=== PATIENT | female | born 1995 | race Caucasian/White ===

== ENCOUNTER 2021-12-20 13:46 | Emergency (ER) | payer OTHER, SELFPAY ==
--- NOTE | ~2021-12-20 | CT_ITS ---
EXAMINATION: CT ABDOMEN AND PELVIS WITH CONTRAST CLINICAL INFORMATION: Left lower quadrant abdominal pain COMPARISON: None TECHNIQUE: Multidetector volumetric images were obtained from the superior aspect of the liver through the pubic symphysis following administration 85 mL of Omnipaque 350 intravenous contrast. Sagittal and coronal reformatted images were obtained on the technologist's workstation. Oral contrast: No This CT examination was performed using dose optimization techniques as appropriate, variously including the following: *Automated exposure control *Adjustment of mA and/or kV according to patient size (this includes techniques or standardized protocols for targeted exams where dose is matched to indication/reason for exam; i.e. extremities or head) *Use of iterative reconstruction technique DLP: 799 mGy-cm FINDINGS: LUNG BASES: The visualized lung bases are unremarkable. LIVER, GALLBLADDER, AND BILIARY TREE: The liver is normal in size, shape, and attenuation. No focal hepatic lesion or biliary ductal dilatation is present. The gallbladder is unremarkable with no evidence of radiopaque gallstones, gallbladder wall thickening, or obvious pericholecystic inflammatory changes. PANCREAS: Unremarkable. SPLEEN: Unremarkable. ADRENAL GLANDS: Unremarkable. KIDNEYS AND URETERS: The kidneys are normal in size, shape, and attenuation. No hydronephrosis, hydroureter, or calculi seen. No perinephric stranding. BLADDER: Unremarkable. GASTROINTESTINAL TRACT: There is no bowel obstruction. Normal appendix. There are scattered colonic diverticuli without diverticulosis. ABDOMINAL WALL: No significant hernia is appreciated. LYMPH NODES: Normal. VASCULAR: Unremarkable. PELVIC VISCERA: The uterus and adnexa are unremarkable. 2.2 cm left ovarian cyst that is likely physiologic OSSEOUS STRUCTURES: Unremarkable. CT/CT abdomen pelvis w IV con IMPRESSION: No acute abnormality or pelvis. Scattered colonic diverticulosis, no diverticulitis. Fleischner guidelines were followed.
--- NOTE | ~2021-12-20 | XR_ITS ---
EXAMINATION: XR CHEST CLINICAL INFORMATION: Cough COMPARISON: None TECHNIQUE: Frontal view of the chest was obtained. FINDINGS: The lungs are clear. There is no airspace consolidation or groundglass opacity or effusion. The costophrenic sulci are clear. The heart is normal in size. The vascularity is normal. The hilar and mediastinal contours and visualized bony structures are unremarkable. XR/XR chest 1V IMPRESSION: Unremarkable examination.
[2021-12-20 14:02] VITALS: BP 136/71; PULSE 78; RESP 18; TEMP 36.2; O2SAT 99; BMI 36.0
[2021-12-20 15:30] LABS: COVID-19 Test Negative (Negative); IDNOW Serial# 9DB6401D; Influenza A Negative (Negative); Influenza B2 Negative (Negative)
[2021-12-20 16:26] VITALS: PULSE 92; RESP 18; O2SAT 95
[2021-12-20] MEDS: 0.9 % Sodium Chloride 1,000 ML 999 ML IV (16:38)
[2021-12-20] MEDS: ondansetron HCL 4 MG/2 ML VIAL IVPUSH ×2 (16:38→18:58)
[2021-12-20] MEDS: Ketorolac Tromethamine 15 MG/ML VIAL IVPUSH (16:40)
--- NOTE | 2021-12-20 16:47 | ECG_ITS ---
Test Reason : lightheadedness Blood Pressure : / mmHG Vent. Rate : 071 BPM Atrial Rate : 071 BPM P-R Int : 156 ms QRS Dur : 078 ms QT Int : 402 ms P-R-T Axes : 041 032 021 degrees QTc Int : 436 ms Normal sinus rhythm Normal ECG No previous ECGs available Referred By: Katie Motley Electronically Signed By:ERIC ROWAN MD
--- NOTE | 2021-12-20 16:51 | ED.URI ---
HPI - URI/Sore Throat General Chief Complaint: Upper Respiratory Symptoms Stated Complaint: possible ear infection, vomiting Time Seen by Provider: 12/20/21 15:46 Source: patient Mode of arrival: ambulatory History of Present Illness HPI Narrative: 26-year-old female with no significant past medical history presenting to the ED complaining of sore throat, left-sided ear pain, rhinorrhea, cough, upper back soreness, lightheadedness, abdominal discomfort, nausea, vomiting and decreased p.o. intake x a couple days. Admits kids are at home with similar symptoms. Denies suspicious food intake or recent travel. Reports symptoms mildly improved today from yesterday. Denies fever, chest pain, shortness breath, diarrhea, dysuria/hematuria, headache, inability to swallow. MD elicited complaint: cough, sore throat, rhinorrhea and nasal congestion Related Data Previous Rx's Medication Instructions Recorded acetaminophen 500 mg tablet 500 mg PO Q6H PRN fever or pain 12/20/21 (Tylenol Extra Strength) #14 tabs amoxicillin 875 mg-potassium 1 tab PO BID 7 days #14 tabs 12/20/21 clavulanate 125 mg tablet cyclobenzaprine 5 mg tablet 5 mg PO Q8H PRN pain (scale score 12/20/21 7-10) 5 days #14 tabs fluticasone propionate 50 2 spray intranasal DAILY #16 grams 12/20/21 mcg/actuation nasal spray,suspension (Flonase Allergy Relief) lidocaine 5 % topical patch 1 patch topical DAILY PRN pain #30 12/20/21 (Lidoderm) ea naproxen 500 mg tablet 500 mg PO BID PRN pain 10 days #20 12/20/21 tabs Allergies Allergy/AdvReac Type Severity Reaction Status Date / Time No Known Allergies Allergy Verified 12/20/21 14:01 Review of Systems Review of Systems: Constitutional: No Fever, No Chills, No Night Sweats, No Fatigue, + Malaise ENT/Mouth: No Hearing loss, + Ear Pain, + Nasal Congestion, No Sinus Pain, No Hoarseness, + sore throat, + Rhinorrhea, No Swallowing Difficulty Eyes: No Eye Pain, No Swelling, No Redness, No Vision Changes Cardiovascular: No Chest Pain, No SOB, No Dyspnea on Exertion, No Orthopnea, No Edema, No Palpitations Respiratory: + Cough, No Sputum, No Wheezing, No Dyspnea Gastrointestinal: + Nausea, + Vomiting, No Diarrhea, No Constipation, + Abdominal pain Genitourinary: No Dysuria, No Urinary Frequency, No Hematuria, No Urinary Incontinence/retention, No Urgency, No Flank Pain, No Urinary Flow Changes Musculoskeletal: No joint pain, No Myalgias, No Joint Swelling Skin: No Skin Lesions, No rash Neuro: No Weakness, No Loss of Consciousness, + lightheadedness, No Headache Yes all other systems are reviewed and are negative Constitutional: Constitutional: Reports as per HPI Neurologic: Denies Abnormal speech present [facility] Past Medical History Attestation statement: The following information was validated with the patient. Social History Social History Advance Directives: No Advance Directives Information Provided: No Advance Directives on File: No Physical Exam Vital Signs: Vital Signs: Last Vital Signs Temp 97.1 F 12/20/21 14:02 Pulse 85 12/20/21 18:44 Resp 18 12/20/21 16:26 BP 115/69 12/20/21 18:44 Pulse Ox 99 12/20/21 14:02 O2 Del Method 12/20/21 14:02 BMI result Body Mass Index 36.0 Const: General: cooperative, healthy appearing, no acute distress, alert, awake and Physically active Orientation/consciousness: patient oriented x3 Limitations: no limitations HEENT: Other: + bilateral tonsillar swelling. No erythema or exudates. Right tonsil stone noted Head: Yes normal to inspection and Yes atraumatic Ears: hearing grossly normal bilaterally, external ears normal, TM normal on the right, mastoids normal and TM abnormal dull on the left General nose exam: Normal external nose present Face and sinus: Yes normal facial exam Throat: Yes uvula midline, Yes abnormal tonsil, No peritonsillar mass, No uvula laterally displaced and No uvular edema Eyes: General: appearance normal, both eyes and all related structures Pupils: Equal, round and reactive pupils present EOM: EOMs intact bilaterally Neck: Other: No midline cervical spinous tenderness. Bilateral trapezius muscle tenderness to palpation reproducing subjective complaint Neck: Yes normal visual inspection, Yes full ROM, Yes no lymphadenopathy and Yes no meningeal signs Resp: Effort & Inspection: normal respiratory effort, no respiratory distress, no stridor and not tachypneic Auscultation: clear to auscultation bilaterally, no crackles, no rales, no rhonchi and no wheezes Cardio: Rate: regular rate Heart sounds: S1 normal heart sound present and S2 normal heart sound present GI: Inspection: Yes normal to inspection Palpation (GI): Soft to palpation, Tenderness to palpation present (GI) in the LLQ; with no rebound tenderness, no guarding and not rigid : General: Yes no CVA tenderness Back/Spine/Pelvis: Other: No midline thoracic/lumbar spinous tenderness/step-off or deformity Back: no CVA tenderness Skin: Rashes: no rashes Wounds: no wounds Neuro: General: patient oriented x3, gait normal, tone normal, moves all extremities, no meningeal signs, no focal motor deficits and CN's II-XI intact bilaterally Cranial nerves: Yes CN's II-XII intact bilaterally, Yes Equal, round and reactive pupils present and Yes Bilaterally intact EOM present Cognition (Neuro): normal cognition Speech: No Abnormal speech present Gait exam (Neuro): Normal gait present Motor exam (neuro): 5/5 motor strength present throughout, Pronator motor function not present and no tremor noted Extrem: General: Yes normal to inspection and Yes no pedal edema Course Course Course Narrative: -COVID-19 and influenza negative -1738--no leukocytosis. Labs otherwise reassuring. UA negative, trace ketones. negative XR chest 1V IMPRESSION: Unremarkable examination. -1815--CT abdomen pelvis w IV con IMPRESSION: No acute abnormality or pelvis. Scattered colonic diverticulosis, no diverticulitis.? ? Fleischner guidelines were followed. -orthostatic vital signs negative Results discussed with patient including worrisome signs and symptoms and strict return precautions, and when to return to the emergency department. They verbalized understanding and feel safe for discharge at this time. MDM - URI/Sore Throat MDM Narrative Medical decision making narrative: 26-year-old female with no significant past medical history presenting to the ED complaining of sore throat, left-sided ear pain, rhinorrhea, cough, upper back soreness, lightheadedness, abdominal discomfort, nausea, vomiting and decreased p.o. intake x a couple days. On exam vital signs stable, NAD, nontoxic appearing, no focal neuro deficits, lungs CTA, abdomen soft with left lower quadrant tenderness, no rebound or guarding. Concern for viral illness vs pharyngitis vs otitis. Concern for colitis vs gastroenteritis vs diverticulitis vs dehydration/metabolic abnormalities vs orthostasis. Low suspicion for appendicitis, UTI, cholecystitis/cholelithiasis, pancreatitis or ACS/PE/dissection. Plan: EKG, labs, UA, CXR, CT AP, IVF, orthostatics, re-evaluated/p.o. challenge Differential Diagnosis Differential diagnosis: Likely upper respiratory infection, otitis media, viral infection, influenza and pharyngitis Medical Records Attestation: I reviewed the patient's medical records. Lab Data Attestation: I reviewed the patient's lab results. Result diagrams: 12/20/21 16:45 12/20/21 16:45 Labs: Lab Results 12/20/21 12/20/21 12/20/21 Range/Units 15:08 15:08 16:45 WBC 10.0 (4.8-10.8) X10*3/uL RBC 5.39 (4.20-5.50) X10*6/uL Hgb 14.8 (12.0-16.0) g/dl Hct 46.0 (37.0-47.0) % MCV 85.3 (80.0-98.0) fL MCH 27.5 (27.0-33.0) pg MCHC 32.2 (31.0-35.0) g/dl RDW 13.3 (11.0-16.0) % Plt Count 301 (160-400) X10*3/uL MPV 12.0 (9.4-12.3) fL Immature Gran % (Auto) 1.0 H (0.0-0.4) % Neut % (Auto) 67.6 (45-73) % Lymph % (Auto) 20.1 (20-40) % [place] % (Auto) 10.4 (2-11) % Eos % (Auto) 0.7 (0-4) % Baso % (Auto) 0.2 (0-2) % Lymph # (Auto) 2.0 (1.2-4.9) X10*3/uL [place] # (Auto) 1.0 (0.1-1.2) X10*3/uL Eos # (Auto) 0.1 (0.0-0.4) X10*3/uL Baso # (Auto) 0.0 (0.0-0.2) X10*3/uL Abs Immat Gran (auto) 0.10 H (0.00-0.03) X10*3/uL Absolute Neuts (auto) 6.8 (2.0-8.3) x10*3/uL Absolute Nucleated RBC 0.000 (0.0-0.012) X10*3/uL Nucleated RBC % (auto) 0.0 (0.0-0.2) /100WBC Sodium (135-145) mmol/L Potassium (3.3-5.1) mmol/L Chloride (96-108) mmol/L Carbon Dioxide (22-29) mmol/L Anion Gap (12-20) BUN (9-16) mg/dL Creatinine (0.5-1.4) mg/dL Estim Creat Clear Calc Estimated GFR Random Glucose (60-115) mg/dL Calcium (8.4-10.2) mg/dL Magnesium (1.6-2.6) mg/dL Total Bilirubin (0.0-1.0) mg/dL Direct Bilirubin (0.0-0.5) mg/dL AST (5-31) U/L ALT (0-31) U/L Alkaline Phosphatase (39-117) U/L Troponin I High Sens (<3.5-17.0) ng/L Total Protein (6.5-8.0) g/dL Albumin (3.5-5.0) g/dL Lipase (8-78) U/L Urine Color Urine Appearance Urine pH (5.0-9.0) Ur Specific [place] (1.005-1.025) Urine Protein (Neg-Trace) mg/dL Urine Glucose (UA) (Negative) mg/dL Urine Ketones (Negative) mg/dL Urine Blood (Negative) Urine Nitrite (Negative) Ur Leukocyte Esterase (Negative) Urine Test (NEGATIVE) COVID-19 (NAHUM) Negative (Negative) COVID-19 Clin Com See Note Influenza Type A (DHRUV) Negative (Negative) Influenza Type B (DHRUV) Negative (Negative) Influenza A & B Note See Note 12/20/21 12/20/21 12/20/21 Range/Units 16:45 16:45 16:45 WBC (4.8-10.8) X10*3/uL RBC (4.20-5.50) X10*6/uL Hgb (12.0-16.0) g/dl Hct (37.0-47.0) % MCV (80.0-98.0) fL MCH (27.0-33.0) pg MCHC (31.0-35.0) g/dl RDW (11.0-16.0) % Plt Count (160-400) X10*3/uL MPV (9.4-12.3) fL Immature Gran % (Auto) (0.0-0.4) % Neut % (Auto) (45-73) % Lymph % (Auto) (20-40) % [place] % (Auto) (2-11) % Eos % (Auto) (0-4) % Baso % (Auto) (0-2) % Lymph # (Auto) (1.2-4.9) X10*3/uL [place] # (Auto) (0.1-1.2) X10*3/uL Eos # (Auto) (0.0-0.4) X10*3/uL Baso # (Auto) (0.0-0.2) X10*3/uL Abs Immat Gran (auto) (0.00-0.03) X10*3/uL Absolute Neuts (auto) (2.0-8.3) x10*3/uL Absolute Nucleated RBC (0.0-0.012) X10*3/uL Nucleated RBC % (auto) (0.0-0.2) /100WBC Sodium 139 (135-145) mmol/L Potassium 3.8 (3.3-5.1) mmol/L Chloride 101 (96-108) mmol/L Carbon Dioxide 24 (22-29) mmol/L Anion Gap 18 (12-20) BUN 9 (9-16) mg/dL Creatinine 0.73 (0.5-1.4) mg/dL Estim Creat Clear Calc 130.7 Estimated GFR > 60 Random Glucose 104 (60-115) mg/dL Calcium 9.5 (8.4-10.2) mg/dL Magnesium 2.1 (1.6-2.6) mg/dL Total Bilirubin 0.2 (0.0-1.0) mg/dL Direct Bilirubin < 0.2 (0.0-0.5) mg/dL AST 20 (5-31) U/L ALT 27 (0-31) U/L Alkaline Phosphatase 73 (39-117) U/L Troponin I High Sens (<3.5-17.0) ng/L Total Protein 7.6 (6.5-8.0) g/dL Albumin 4.5 (3.5-5.0) g/dL Lipase 10 (8-78) U/L Urine Color Yellow Urine Appearance Clear Urine pH 5.5 (5.0-9.0) Ur Specific [place] 1.020 (1.005-1.025) Urine Protein Negative (Neg-Trace) mg/dL Urine Glucose (UA) Negative (Negative) mg/dL Urine Ketones Trace (Negative) mg/dL Urine Blood Negative (Negative) Urine Nitrite Negative (Negative) Ur Leukocyte Esterase Negative (Negative) Urine Test NEGATIVE (NEGATIVE) COVID-19 (NAHUM) (Negative) COVID-19 Clin Com Influenza Type A (DHRUV) (Negative) Influenza Type B (DHRUV) (Negative) Influenza A & B Note 12/20/21 Range/Units 16:45 WBC (4.8-10.8) X10*3/uL RBC (4.20-5.50) X10*6/uL Hgb (12.0-16.0) g/dl Hct (37.0-47.0) % MCV (80.0-98.0) fL MCH (27.0-33.0) pg MCHC (31.0-35.0) g/dl RDW (11.0-16.0) % Plt Count (160-400) X10*3/uL MPV (9.4-12.3) fL Immature Gran % (Auto) (0.0-0.4) % Neut % (Auto) (45-73) % Lymph % (Auto) (20-40) % [place] % (Auto) (2-11) % Eos % (Auto) (0-4) % Baso % (Auto) (0-2) % Lymph # (Auto) (1.2-4.9) X10*3/uL [place] # (Auto) (0.1-1.2) X10*3/uL Eos # (Auto) (0.0-0.4) X10*3/uL Baso # (Auto) (0.0-0.2) X10*3/uL Abs Immat Gran (auto) (0.00-0.03) X10*3/uL Absolute Neuts (auto) (2.0-8.3) x10*3/uL Absolute Nucleated RBC (0.0-0.012) X10*3/uL Nucleated RBC % (auto) (0.0-0.2) /100WBC Sodium (135-145) mmol/L Potassium (3.3-5.1) mmol/L Chloride (96-108) mmol/L Carbon Dioxide (22-29) mmol/L Anion Gap (12-20) BUN (9-16) mg/dL Creatinine (0.5-1.4) mg/dL Estim Creat Clear Calc Estimated GFR Random Glucose (60-115) mg/dL Calcium (8.4-10.2) mg/dL Magnesium (1.6-2.6) mg/dL Total Bilirubin (0.0-1.0) mg/dL Direct Bilirubin (0.0-0.5) mg/dL AST (5-31) U/L ALT (0-31) U/L Alkaline Phosphatase (39-117) U/L Troponin I High Sens < 3.5 (<3.5-17.0) ng/L Total Protein (6.5-8.0) g/dL Albumin (3.5-5.0) g/dL Lipase (8-78) U/L Urine Color Urine Appearance Urine pH (5.0-9.0) Ur Specific [place] (1.005-1.025) Urine Protein (Neg-Trace) mg/dL Urine Glucose (UA) (Negative) mg/dL Urine Ketones (Negative) mg/dL Urine Blood (Negative) Urine Nitrite (Negative) Ur Leukocyte Esterase (Negative) Urine Test (NEGATIVE) COVID-19 (NAHUM) (Negative) COVID-19 Clin Com Influenza Type A (DHRUV) (Negative) Influenza Type B (DHRUV) (Negative) Influenza A & B Note ECG Data Attestation: I personally reviewed and interpreted this ECG as follows: ECG interpretation date: 12/20/21 ECG interpretation time: 16:56 Interpretation: EKG normal sinus rhythm at a rate of 71. QTC 436. No STEMI. Nonischemic. Artifact present Discharge Plan Discharge Clinical Impression: Otitis media, Upper respiratory infection, Abdominal pain, Trapezius muscle spasm Patient Disposition: Home, Self-Care Instructions: Ear Infection (ED), Upper Respiratory Infection (ED), Abdominal Pain (ED) Additional Instructions: You tested negative for COVID-19 and the flu. Her chest x-ray is unremarkable. Your CT scan does not show any acute findings, and her blood work was reassuring You have an inner ear infection, Augmentin is an antibiotic please take as prescribed. Flonase is a nasal decongestion this will also help with her symptoms Rest, stay hydrated, increase fluid intake Please follow-up with her doctor If symptoms persist or worsen return to the emergency department Your back pain is likely musculoskeletal Flexeril is a muscle relaxer, take at night as it makes you drowsy, do not drive, drink alcohol, or operate machinery while taking it Naproxen as an anti-inflammatory / pain medication, take with food Lidoderm patches are numbing patches, apply to painful area In addition take Tylenol at home If symptoms persist or worsen, pain becomes unbearable, you developed urinary retention or incontinence, or weakness return to the ED Prescriptions: New amoxicillin-pot clavulanate 875-125 mg tablet 1 tab PO BID 7 Days Qty: 14 0RF fluticasone propionate [Flonase Allergy Relief] 50 mcg/actuation spray,suspension 2 spray intranasal DAILY Qty: 16 0RF Rx Instructions: administer into each nostril acetaminophen [Tylenol Extra Strength] 500 mg tablet 500 mg PO Q6H PRN (Reason: fever or pain) Qty: 14 0RF lidocaine [Lidoderm] 5 % adhesive patch,medicated 1 patch topical DAILY MDD remove after 12 hours PRN (Reason: pain) Qty: 30 0RF Rx Instructions: leave on most painful area for up to 12 hrs naproxen 500 mg tablet 500 mg PO BID PRN (Reason: pain) 10 Days Qty: 20 0RF cyclobenzaprine 5 mg tablet 5 mg PO Q8H PRN (Reason: pain (scale score 7-10)) 5 Days Qty: 14 0RF Referrals: Physician,None [Primary Care Provider] - 3 days
[2021-12-20 16:52] LABS: MANUAL DIFF FLAG NO
[2021-12-20 16:54] LABS: Basophils Percent Auto 0.2 % (0-2); Eosinophils Absolute Auto 0.1 X10*3/uL (0.0-0.4); Eosinophils Percent Auto 0.7 % (0-4); Hemoglobin 14.8 g/dl (12.0-16.0); Lymphocytes Percent Auto 20.1 % (20-40); Mean Corpuscular HGB Conc 32.2 g/dl (31.0-35.0); Mean Corpuscular Hemoglobin 27.5 pg (27.0-33.0); Mean Corpuscular Volume 85.3 fL (80.0-98.0); Monocytes Percent Auto 10.4 % (2-11); Neutrophils Absolute Auto 6.8 x10*3/uL (2.0-8.3); Neutrophils Percent Auto 67.6 % (45-73); Platelet Count 301 X10*3/uL (160-400); Red Blood Count 5.39 X10*6/uL (4.20-5.50); Red Cell Distribution Width 13.3 % (11.0-16.0)
[2021-12-20 17:10] LABS: Alanine Aminotransferase 27 U/L (0-31); Albumin Level 4.5 g/dL (3.5-5.0); Alkaline Phosphatase 73 U/L (39-117); Anion Gap 18 (12-20); Aspartate Amino Transferase 20 U/L (5-31); Bilirubin Direct < 0.2 mg/dL (0.0-0.5); Bilirubin Total 0.2 mg/dL (0.0-1.0); Blood Urea Nitrogen 9 mg/dL (9-16); Calcium 9.5 mg/dL (8.4-10.2); Carbon Dioxide 24 mmol/L (22-29); Chloride 101 mmol/L (96-108); Creatinine Clr Calc Pharmacy 130.7; Estimated Glomerular Filt Rate > 60; Glucose Random 104 mg/dL (60-115); Lipase 10 U/L (8-78); Magnesium 2.1 mg/dL (1.6-2.6); Potassium 3.8 mmol/L (3.3-5.1); Sodium 139 mmol/L (135-145); Total Protein 7.6 g/dL (6.5-8.0)
[2021-12-20 17:16] LABS: Appearance Urine Clear; Color Urine Yellow; Glucose Urine UA Negative (Negative); Leukocyte Esterase Urine Negative (Negative); Nitrite Urine Negative (Negative); PH 5.5 (5.0-9.0); Urine Blood Negative (Negative); Urine Ketones Trace mg/dL (Negative); Urine Protein Negative (Neg-Trace)
[2021-12-20 17:18] LABS: UPreg QC Valid YES; Urine Pregnancy NEGATIVE (NEGATIVE)
[2021-12-20] MEDS: iohexoL 350 MG/ML 100 ML INFUS..BTL IV (17:58)
[2021-12-20 18:11] LABS: Troponin-I High Sensitivity < 3.5 ng/L (<3.5-17.0)
[2021-12-20 18:42] VITALS: BP 105/65; BP 108/57; PULSE 70; PULSE 75
[2021-12-20 18:44] VITALS: BP 115/69; PULSE 85
== END 2021-12-20 19:19 | disposition home or self-care (01) ==
PROVIDERS: Physician Assistant; Emergency Provider Emergency Medicine
DX: H66.92 Otitis media, unspecified, left ear (principal); J06.9 Acute upper respiratory infection, unspecified; R05.9 Cough, unspecified; R42 Dizziness and giddiness; M62.838 Other muscle spasm; Z20.822 Contact with and (suspected) exposure to COVID-19; Z79.899 Other long term (current) drug therapy
CPT/HCPCS: 36415; 71045; 74177; 80048; 80076; 81003; 81025; 83690; 83735; 84484; 85025; 87502; 87635; 93005; 94640; 96361; 96374; 96375; 96376; 99284; 99285; J1885; J2405; Q9967

== ENCOUNTER 2024-12-27 09:54 | Outpatient (AMB) | payer OTHER, SELFPAY ==
--- NOTE | 2024-12-27 09:57 | A.OFFPC_ITS ---
Vital Signs 12/27/24 10:03 Height 5 ft 4.57 in Weight 104.78 kg BMI 38.9 BP 110/56 L Blood Pressure Location Lt brachial Position Sitting Respiration 18 Pulse 102 H Pulse Source Pulse Oximeter Temp 98.0 F Temp Source Temporal Artery Scan Pulse Oximetry (%) 97 Oxygen Delivery Method Room Air Intake Visit Reasons: New Patient Flight Director Required: No Accompanied by: Self / Same As Patient Allergies No Known Allergies Allergy (Verified 12/27/24 09:58) Medication List - Last Reconciled 12/27/24 by MEGAN Dobson fluticasone propionate 50 mcg/actuation (Flonase Allergy Relief) 2 sprays intranasal DAILY Tobacco use date assessed: 12/27/24 Dental Screening Dental Screen Date: 12/27/24 Did you have a dental visit in the last 12 months?: No Did you have a dental problem in the last 6 months where you did not have access to dental care?: No Was dental information given to patient?: Patient has dentist HPI HPI Comments History of Present Illness Details 29-year-old female without any significa nt past medical history other than obesity presents to the office today to establish care and for annual physical exam. She has not been seen by PCP in for years. Currently lives at home with her 3 children and her partner of 7 years. Feels safe at home. She works as a dispatcher for [employer]. Reports occasional alcohol use, no more than 1-2 alcoholic beverages in a sitting. No history of cigarette smoking. No illicit drug use. Does smoke marijuana but reports she does purchase this from a dispensary. Obesity class 2-BMI 29.0. Reports that she does regularly go to the gym but states she is not always following a healthy diet. She does desire referral to weight management for both nutrition as well as discussion regarding therapies for weight loss Concerns: Tonsillitis-reports tonsillitis dating back to childhood. Reports she was supposed to have a tonsillectomy due to near airway obstruction following a hospitalization due to severity of tonsillitis obstructing her airway, but this never took place as she had difficulties with referral to ENT due to insurance issues in 2022. She still experiences occasional difficulty breathing, snoring, and sensation as if something is stuck in her throat. She states this does make swallowing food difficult. No fevers or chills. No sore throat Concerns about cancer screening. Father has history of prostate cancer and liver cancer. Maternal and paternal grandmothers had breast cancers and their 60s. Requesting STI testing. Asymptomatic. Does have history of treated syphilis around 2018 or 2019 Health maintenance: Requires referral to manager sustainability, overdue for Pap smear No cancer history to necessitate early cancer screening. Colonoscopies to start at age 45 and mammograms to start at age 40 Has not seen an eye doctor-does report difficulty driving at night with distorted headlights. No glasses or contacts She does wear sun protection Overdue for dental exam Reviewed past medical, surgical, family, social history ROS: General: No fevers, malaise, unintentional weight loss HEENT: No blurred vision, diplopia. No sore throat, nasal congestion, rhinorrhea, sinus pain, ear pain. No hearing loss Neck - no adenopathy Cardiovascular: No chest pain, palpitations, or leg edema Respiratory: No shortness of breath, wheezing, cough Breast: No pain, palpable lumps, nipple inversion GI: No dysphagia, odynophagia, globus sensation. No abdominal pain, nausea, vomiting, diarrhea, constipation, melena, hematochezia : No dysuria, hematuria, increased urinary frequency, decreased urinary output. CLINICAL SPECIALIST VASCULAR: No abn vaginal bleeding or discharge MSK: No myalgia, back pain, arthralgias Neuro: No headaches, weakness, paresthesias Psych: no depression/anxiery. No AH/VH. No SI/HI Skin: No rashes or lesions EXAM: Constitutional - Awake and Alert, No apparent distress Eyes - PERRLA, EOMI. Anicteric Ears - external ears normal, canals clear, TMs intact and pearly bardales with good cone of light Mouth/throat- Grade IV tonsils, no exudate Nose- septum midline, nares clear, no sinus tenderness Mouth/throat- mucosa moist, tongue and uvula midline, no erythema/edema or tonsillar adenopathy. Neck-trachea midline, thyroid symmetric without palpable nodules, no adenopathy Cardiovascular - S1S2, RRR, No edema Respiratory - Normal lung expansion, Normal respiratory effort, No respiratory distress, CTA bilaterally Gastrointestinal - NT / ND; +BS; No rebound or guarding - No CVA tenderness Extremities - no calf tenderness bilaterally, no swelling Musculoskeletal - Normal inspection, normal ROM Skin - Warm/Dry, no concerning lesions Neurological - Alert & oriented x3, CN II-XII in tact, 5/5 strength BUE and BLE, 2+ patellar reflexes, sensation intact Psychological - Appropriate affect PFSH Medical History Snoring Tonsillitis Seasonal allergies Hx of syphilis Gestational diabetes Obesity Surgical History No pertinent past surgical history Family History Sister Lymphoma Father Liver cancer FH: prostate cancer Stroke Diabetes Maternal Grandmother Breast cancer, Onset Age: 65 Paternal Grandmother Breast cancer, Onset Age: 65 Social History Housing: House Patient Tobacco Use Status: Never used Tobacco e-Cigarette/Vaping Use: Currently Using service: No Current occupational status: employed Current occupation: [employer] Questionnaire PHQ-9 Over the last 2 weeks, how often have you been bothered by any of the following problems? 1. Little interest or pleasure in doing things: not at all 2. Feeling down, depressed, or hopeless: not at all 3. Trouble falling or staying asleep, or sleeping too much: several days 4. Feeling tired or having little energy: more than half the days 5. Poor appetite or overeating: more than half the days 6. Feeling bad about yourself - or that you are a failure or have let yourself or your family down: not at all 7. Trouble concentrating on things, such as reading the newspaper or watching television: not at all 8. Moving or speaking so slowly that other people could have noticed. Or the opposite - being so fidgety or restless that you have been moving around a lot more than usual: not at all 9. Thoughts that you would be better off or of hurting yourself in some way: not at all Total score: 5 Source: Developed by Drs. Minh Aleman, Valery Hong, Sylvester Duvall and colleagues, with an educational jennifer from [employer]. Thrive Questionnaire Date Thrive assessed: 12/27/24 I am a: Patient What is your living situation today?: I have a steady place to live Within the past 12 months, did the food you bought not last and you didn't have the money to get more?: Never true Within the past 12 months, did you worry whether your food would run out before you got money to buy more?: Never true Do you have trouble paying for medicines?: No Do you have trouble getting transportation to medical appointments?: No Do you have trouble paying your heating and electricity bill?: No Do you have trouble taking care of your child, family member or friend?: Yes Do you have trouble with day-to-day activities such as bathing, preparing meals, shopping, managing finances, etc.?: No Are you currently unemployed and looking for a job?: No Are you interested in more education?: No THRIVE Score: 0 AUDIT C Alcohol Use Questionnaire (AUDIT-C) 1. How often do you have a drink containing alcohol?: Monthly or less 2. How many drinks containing alcohol do you have on a typical day when you are drinking?: 1 or 2 3. How often do you have six or more drinks on one occasion?: Never Total Score: 1 ALEXIS-7 AMB Questionnaire ALEXIS-7 Date ALEXIS - 7 assessed: 12/27/24 Feeling nervous, anxious, or on edge: 2 = More than half the days Not being able to stop or control worryin = More than half the days Worrying too much about different things: 2 = More than half the days Trouble relaxin = More than half the days Being so restless that it is hard to sit still: 0 = Not at all Becoming easily annoyed or irritable: 3 = Nearly every day Feeling afraid as if something awful might happen: 0 = Not at all Total ALEXIS-7 score (0-4 normal; 5-9 mild; 10-14 moderate; 15-21 severe): 11 Source: Developed by Drs. Minh Aleman, Valery Hong, Sylvester Duvall and colleagues, with an educational jennifer from [employer]. Physical exam (Primary Care) Vital Signs: Last Vital Signs Temp 98.0 F 12/27/24 10:03 Pulse 102 H 12/27/24 10:03 Resp 18 12/27/24 10:03 BP 110/56 L 12/27/24 10:03 Pulse Ox 97 12/27/24 10:03 Oxygen Delivery Method Room Air 12/27/24 10:03 BMI result Body Mass Index 38.9 Tobacco/Smoking Status: Tobacco use Status Tobacco use date assessed 12/27/24 12/27/24 10:00 Patient Tobacco Use Status Never used Tobacco 12/27/24 10:06 e-Cigarette/Vaping Use Currently Using 12/27/24 10:06 PHQ-9: PHQ-9 Score PHQ-9: Total score 5 12/27/24 10:32 Thrive Assessment: Date of Thrive Assessment Date Thrive assessed 12/27/24 12/27/24 10:14 Coding Level of Care Code New Pt Prev Care 18-39yr([id number] Diagnoses Routine medical exam Z00.00 Tonsillitis J03.90 Obesity E66.9 Assessment & Plan Assessment & Plan (1) Routine medical exam: Code(s): Z00.00 - Encounter for general adult medical examination without abnormal findings Category: Medical Plan: 29-year-old female here to establish care and for annual physical exam (2) Tonsillitis: Code(s): J03.90 - Acute tonsillitis, unspecified Category: Medical Plan: Grade IV accompanied by snoring, occasional difficulty breathing, sensation as if something is stuck in her throat. No evidence of infection. Suspect she will require tonsillectomy-referred to ENT. Anti-inflammatories p.r.n. (3) Obesity: Code(s): E66.9 - Obesity, unspecified Category: Medical Plan: Continue with 150 minutes of moderate intensity exercise per week. Recommend diet lower in calories with emphasis on increased protein, fruits, vegetables and limiting refined sugars, simple carbohydrates, highly processed foods. She is referred to medical weight management. Plan Routine screening labs as ordered below Referred to manager sustainability for Pap smear. Mammogram since started age 40, colon cancer screening to start at age 45 Continue following for annual skin exams and use sun protection Recommend eye exams Recommend dental exams twice yearly Wear seat belt in car Recommend regular exercise and healthy diet Follow-up in the office in 1 year, sooner if needed STI testing ordered per patient request. She consents to HIV testing Orders: Orders Hemoglobin A1c Today E55.9 - Vitamin D deficiency, unspecified, Z00.00 - Encounter for general adult medical examination without abnormal findings Complete Blood Count Auto Diff Today E55.9 - Vitamin D deficiency, unspecified, Z00.00 - Encounter for general adult medical examination without abnormal findings Vitamin D 25-OH Total Today E55.9 - Vitamin D deficiency, unspecified, Z00.00 - Encounter for general adult medical examination without abnormal findings Syphilis Screen Today Z11.3 - Encounter for screening for infections with a predominantly sexual mode of transmission CT NG by PCR Urine Today Z11.3 - Encounter for screening for infections with a predominantly sexual mode of transmission HIV Ab/Ag Today Z11.3 - Encounter for screening for infections with a predominantly sexual mode of transmission Basic Metabolic Panel Today E55.9 - Vitamin D deficiency, unspecified, Z00.00 - Encounter for general adult medical examination without abnormal findings Lipid Panel Today E55.9 - Vitamin D deficiency, unspecified, Z00.00 - Encounter for general adult medical examination without abnormal findings Liver Panel Today E55.9 - Vitamin D deficiency, unspecified, Z00.00 - Encounter for general adult medical examination without abnormal findings TSH reflex Free T4 Today E55.9 - Vitamin D deficiency, unspecified, Z00.00 - Encounter for general adult medical examination without abnormal findings Referrals ANODE CREW SUPERVISOR Referral Z12.4 - Encounter for screening for malignant neoplasm of cervix, Z97.5 - Presence of (intrauterine) contraceptive device Ear/Nose/Throat Referral J03.90 - Acute tonsillitis, unspecified, R06.83 - Snoring, R13.10 - Dysphagia, unspecified, Z11.3 - Encounter for screening for infections with a predominantly sexual mode of transmission Medical Weight Management Referral E66.9 - Obesity, unspecified Medications: Discontinued amoxicillin-pot clavulanate 875-125 mg Discontinued Reason: Patient Completed Course 1 tab PO BID 7 days 14 tabs 0RF cyclobenzaprine Discontinued Reason: Patient Completed Course 5 mg PO Q8H 5 days PRN 14 tabs 0RF pain (scale score 7-10) naproxen Discontinued Reason: Patient Completed Course 500 mg PO BID 10 days PRN 20 tabs 0RF pain acetaminophen (Tylenol Extra Strength) Discontinued Reason: Patient Completed Course 500 mg PO Q6H PRN 14 tabs 0RF fever or pain lidocaine 5% (Lidoderm) leave on most painful area for up to 12 hrs Discontinued Reason: Patient Completed Course 1 patch topical DAILY PRN 30 ea 0RF pain MDD remove after 12 hours
[2024-12-27 10:03] VITALS: BP 110/56; PULSE 102; RESP 18; TEMP 36.7; O2SAT 97; BMI 38.9
--- OUTSIDE RECORDS SUMMARY | 2024-12-27 11:37 | XMS_ITS ---
Author Name [facility] Organization Unknown Care Team Organization Name Specialty Phone Email Start Date End Da te [facility] Stephenie Chao Primary Care 10/31/2022 10/13/2023 [facility] ALYSSA CASTELLANOS Primary Care 01/01/2022 10/13/19 24
--- OUTSIDE RECORDS SUMMARY | 2024-12-27 11:37 | XMS_ITS | Clinical Summary ---
Author Organization [facility] ity Address [address] [place] [address] Care Team Providers Care Rubber Attacher Name Role Phone Stephenie Chao MD Primary Care Provider [phone] Surgical History Surgery Date Site/Laterality Comments OTHER SURGICAL HISTORY PROCEDURE: DENIES PREVIOUS SURGERY Medical History Medical History Date Comments RSV infection DX:RSV infection Pneumonia DX:Pneumonia; CO MMENT: hospitalized as infant Behavior problems DX:Behavior pr oblems; COMMENT: [facility] Headache(784.0) 12/05 DX:Headache(784. 0); COMMENT: worse when younger child Esotropia DX:Esotropia Obesity DX:Obesity; COMM ENT: referred to weight mgmnt clinic05/04 Menarche DX:Menarche; COM MENT: onset at 11yo Acanthosis nigricans DX:Acanthos is nigricans state, incidental 10/09/12 DX:Pr egnant state, incidental; COMMENT: pos urine Hcg, Quant Hcg 1690 Supervision of normal first 12/11/2012 DX:Supervision of normal first ; COMMENT: Requested records for [facility] on 03/05/13 [place] low risk, fetus female. Normal anatomy with [facility] . Rec to follow up for growth after 28 weeks Initial AFP unable to be run due to lab error. Lab unable to reach pt for redraw. 26.3wk scan-hx headaches, nl growth Chlamydia 01/2017 DX:Chlamydia Syphilis 01/2017 DX:Syphilis Family History Medical History Relation Name Comments Asthma Maternal Grandfather Diabetes Maternal Grandfather Asthma Maternal Grandmother Diabetes Maternal Grandmother Diabetes Mother and Father Obesity Mother Blindness Neg Hx Cataracts Neg Hx Glaucoma Neg Hx Macular degeneration Neg Hx Strabismus Neg Hx Relation Name Status Comments Maternal Grandfather Maternal Grandmother Mother Social History Tobacco Use Types Packs/Day Years Used Date Smoking Tobacco: Never Smokeless Tobacco: Never Alcohol Use Standard Drinks/Week Comments No 0 (1 standard drink = 0.6 oz pur e alcohol) Comments Unknown Sex and Gender Information Value Date Recorded Sex Assigned at Not on file Legal Sex Female 3:09 PM EST Gender Identity Not on file Sexual Orientation Not on file Obstetrics History Last Filed Vital Signs Vital Sign Reading Time Taken Comments Blood Pressure 127/81 11/28/2022 1:09 PM EDT Pulse 76 11/28/2022 1:09 PM EDT Temperature - - Respiratory Rate - - Oxygen Saturation - - Inhaled Oxygen Concentration - - Weight 99.8 kg (220 lb 1.9 oz) 11/28/2022 1:09 P M EDT Height 165.1 cm (5' 5 ) 11/28/2022 1:09 PM EDT Body Mass Index 36.63 11/28/2022 1:09 PM EDT Plan of Treatment Health Maintenance Due Date Last Done Comments Cervical Cancer Screening: Pap Smear 11/13/2016 DTaP,Tdap,and Td Vaccines (7 - Td or Tdap) 11/29/2018 11/29/2008, 12/17/1999, 02/16/1997, Additional history exists Cholesterol Screening (Lipid Panel) 03/26/2023 HIV Screening 03/26/2023 Hepatitis C Screening 03/26/2023 Social Influencers of Health Screening 03/26/2023 Depression Screening 02/25/2024 COVID-19 Vaccine ( season) 2024 Influenza Vaccine (#1) 2024 4, 12/16/2012, 03/26/2007 RSV Immunization Adult Patients (1 - 1-dose 75+ series) 11/13/2070 Hepatitis B Vaccines Completed 08/30/1996, 1995, 1995 HIB Vaccines Completed 02/16/1997, 04/25, 03/28/1996, Additional history exists IPV Vaccines Completed 12/17/1999, 01/25, 05/19/1996, Additional history exists MMR Vaccines Completed 12/17/1999, 02/16/1997 Pneumococcal Vaccine: Pediatrics (0 to 5 Years) and At-Risk Patients (6 to 49 Years) Completed 12/17/1999 Meningococcal ACWY Vaccine Aged Out 11/29/2008 N o longer eligible based on patient's age to complete this topic Varicella Vaccines Completed 11/29/2008, 11/30/1996 HPV Vaccines Completed 05/21/2010, 07/2008, 03/26/2007 Hepatitis A Vaccines Completed 08/08/2011, 05/22/19 11 Meningococcal B Vaccine Aged Out No l onger eligible based on patient's age to complete this topic RSV Immunization Patients Under 20 months Aged Out No longer eligible based on patient's age to complete this topic Care Teams Rubber Attacher Relationship Specialty Start Date End Date Stephenie Chao MD PCP - General 07/29/22
== END 2024-12-27 10:39 | disposition home or self-care (01) ==
LOC: HO.HMCHD 09:55
PROVIDERS: Visit Provider Physician Assistant
DX: Z00.00 Encounter for general adult medical examination without abnormal findings (principal); J03.90 Acute tonsillitis, unspecified; E66.9 Obesity, unspecified

== ENCOUNTER 2024-12-27 10:51 | Outpatient (REF) | payer OTHER, SELFPAY ==
[2024-12-27 13:13] LABS: MANUAL DIFF FLAG NO
--- OUTSIDE RECORDS SUMMARY | 2024-12-27 13:23 | XMS_ITS | Encounter Summary ---
Author Organization [facility] Address [address] [place] [address] Care Team Providers Care Telephone Surveyor Name Role Phone Consuelo Dudley MD Primary Care Provider Unavailab [facility], Pcp Primary Care Provider Consuelo Boothe MD Primary Care Provider Unavailab [facility], Pcp Primary Care Provider Reyna Sullivan MD Primary Care Provider Unava Rio Niño MD Primary Care Provider Unava Ramo Browne MD Primary Care Provider [phone] Stephenie Chao MD Primary Care Provider Un available Encounter Details Date Type Department Care Team Description 12/05/2011 Business Doc Medical Records [address] [place] [id number] Abstract, Provider Social History Tobacco Use Types Packs/Day Years Used Date Smoking Tobacco: Passive Smo ke Exposure - Never Smoker Comments:mom smokes outside Alcohol Use Standard Drinks/Week Comments Not Asked 0 (1 standard drink = 0.6 oz pur e alcohol) Sex Assigned at Date Recorded Not on file documented as of this encounter Plan of Treatment Not on file documented as of this encounter Visit Diagnoses Not on filedocumented in this encounter Care Teams Telephone Surveyor Relationship Specialty Start Date End Date Consuelo Dudley MD PCP - General Pediatrics 10/02/11 03/30/15 [facility] Pcp PCP - General Internal Medicine 03/31/15 04/14/15 Consuelo Dudley MD PCP - General Pediatrics 04/15/15 04/21/16 [facility] Pcp PCP - General Internal Medicine 04/22/16 08/28/16 Reyna Lennon MD PCP - General Internal Medicine 08/29/16 06/08/17 Rio Hawkins MD PCP - General Internal Medicine 06/09/17 05/18/18 Ramo Sun MD PCP - General Internal Medicine 05/19/18 07/28/22 Stephenie Chao MD PCP - General Internal Medicine 07/29/22 documented as of this encounter
--- OUTSIDE RECORDS SUMMARY | 2024-12-27 13:23 | XMS_ITS | Encounter Summary ---
Author Organization [facility] Address [address] [place] [address] Care Team Providers Care Instrument Technician Helper Name Role Phone Consuelo Dudley MD Primary Care Provider Unavailab [facility], Pcp Primary Care Provider UnavailReyna Miller MD Primary Care Provider Unava ilable Rio Hawkins MD Primary Care Provider Unava ilable Ramo Sun MD Primary Care Provider [phone] Stephenie Chao MD Primary Care Provider Un available Encounter Details Date Type Department Care Team Description 07/12/2015 Zika Virus Medical Records [address] [place] [id number] Abstract, Provider Social History Tobacco Use Types Packs/Day Years Used Date Smoking Tobacco: Never Smokeless Tobacco: Never Comments:mom smokes outside Alcohol Use Standard Drinks/Week Comments No 0 (1 standard drink = 0.6 oz pur e alcohol) Sex Assigned at Date Recorded Not on file documented as of this encounter Plan of Treatment Not on file documented as of this encounter Visit Diagnoses Not on filedocumented in this encounter Care Teams Instrument Technician Helper Relationship Specialty Start Date End Date Consuelo Dudley MD PCP - General Pediatrics 04/15/15 04/21/16 [facility], Pcp PCP - General Internal Medicine 04/22/16 08/28/16 Reyna Lennon MD PCP - General Internal Medicine 08/29/16 06/08/17 Rio Hawkins MD PCP - General Internal Medicine 06/09/17 05/18/18 Ramo Sun MD PCP - General Internal Medicine 05/19/18 07/28/22 Stephenie Chao MD PCP - General Internal Medicine 07/29/22 documented as of this encounter
--- OUTSIDE RECORDS SUMMARY | 2024-12-27 13:23 | XMS_ITS | Clinical Summary ---
Author Organization [facility] Address [address] [facility] [place] [place] [address] Care Team Providers Care Men'S And Boys' Clothing Salesperson Name Role Phone Stephenie Chao MD Primary Care Provider Un available Allergies No known active allergies Medications Medication Sig Dispensed Refills Start Date End Date Status Etonogestrel 68 MG Implant Inject into the skin. 0 Active phentermine 15 MG capsuleIndications:Cl ass 2 obesity due to excess calories without serious comorbidity with body mass index (BMI) of 36.0 to 36.9 in adult Take 1 Capsule by mouth every morning for 30 days. 30 Capsule 1 11/28/2022 Active Active Problems Problem Noted Date Chlamydia infection 02/21/2017 Syphilis 02/20/2017 H/O retained placenta in prior , currently 08/16/2015 Overview: 3 units of PRBC transfused Rh negative state in antepartum period 0 07/14/2015 Obesity Overview: referred to weight mgmnt clinic05/04 Acanthosis nigricans Headache Resolved Problems Problem Noted Date Resolved Date Supervision of other normal , antepartu m 07/10/2015 12/28/2015 Overview: Patient and sexual partner deny travelling out of the country during this . Zika assessment form completed and sent to scan. Normal anatomy scan 18.2 weeks --cardiac views follow up at 24.2 wks wnl 1. [facility] site: [place] 2. Delivery site: [facility] 3. Dating criteria: LMP only 3. Blood type: O- 4. Genetic screening: panorama Date: Result: 5. GBS: Date: 6. FOB name: Willian 7. Plans A. Epidural or other pain management - B. Labor support identified - C. Tdap - Date: D. Breast or Bottle feed: breast E. Baby's name - F. Circumcision - Supervision of normal first 12/11/2012 12/31/2013 Overview: Requested records for [facility] on 03/05/13 [place] low risk, fetus female. Normal anatomy with [facility] . Rec to follow up for growth after 28 weeks Initial AFP unable to be run due to lab error. Lab unable to reach pt for redraw. 26.3wk scan-hx headaches, nl growth Immunizations Name Administration Dates Next Due DTaP 12/17/1999, 7,05/19/1996,03/28,01/14/1996 HIB 02/16/1997, 7,03/28/1996,01/13 HPV (Gardasil) 05/21/2010,11/29/2008,03/26/2007 Hepatitis A-2 dose (<19yrs) 08/08/2011, 1 Hepatitis B-3 Dose (<19yrs) 08/30/1996, 6,1995 Influenza (> 6 Months) 03/26/2007 Influenza (>6 Months) Split Preservative Free 12/16/2012 Influenza FluMist 12/31/2013 MMR (Fnzaxwr-Dwsgz-Wqfvfdz) 12/17/1999, 7 Meningococcal (Menactra) 11/29/2008 Pneumococcal(Pedi) Conjugate PCV-7 12/17/1999 Polio (IPV) 12/17/1999, 7,03/28/1996,01/13 Tdap (Adacel) 11/29/2008 Varicella 11/29/2008,11/30/1996 Family History Medical History Relation Name Comments Asthma Maternal Grandfather Diabetes Maternal Grandfather Asthma Maternal Grandmother Diabetes Maternal Grandmother Diabetes Mother and Father Obesity Mother Blindness Negative Hx Cataract Negative Hx Glaucoma Negative Hx Macular Degeneration Negative Hx Strabismus Negative Hx Relation Name Status Comments Maternal Grandfather Maternal Grandmother Mother Social History Tobacco Use Types Packs/Day Years Used Date Smoking Tobacco: Never Smokeless Tobacco: Never Tobacco Cessation:Counseling Given: Not Answered Comments:mom smokes outside Alcohol Use Standard Drinks/Week Comments No 0 (1 standard drink = 0.6 oz pur e alcohol) Sex Assigned at Date Recorded Not on file Last Filed Vital Signs Vital Sign Reading Time Taken Comments Blood Pressure 127/81 11/28/2022 1:09 PM EDT Pulse 76 11/28/2022 1:09 PM EDT Temperature 36.7 C (98.1 F) 09/11/2022 11:14 AM EDT Respiratory Rate 17 05/26/2018 1:55 PM EDT Oxygen Saturation - - Inhaled Oxygen Concentration - - Weight 99.8 kg (220 lb 1.9 oz) 11/28/2022 1:09 P M EDT Height 165.1 cm (5' 5 ) 11/28/2022 1:09 PM EDT Body Mass Index 36.63 11/28/2022 1:09 PM EDT Plan of Treatment Health Maintenance Due Date Last Done Comments Covid-19 Vaccine (#1) 05/13/1996 CHOLESTEROL SCREENING 2015 CERVICAL CANCER SCREENING 11/13/2016 BMI CHECK/ADVISE 02/25/2024 11/28/2022, , 09/11/2022 (Completed), Additional history exists DEPRESSION SCREENING/FOLLOWUP 02/25/2024 09/11/2022 (Completed) SOCIAL NEEDS SCREENING 02/25/2024 09/11/2022 (Comple cherry) INFLUENZA (#1) 2024 12/31/2013, 11/25, 03/26/2007 BASELINE HEALTH EXAM 18-39 09/12/202709/11, 09/11/2022, 09/11/2022 (Completed) DTAP/TDAP/TD (7 - Td or Tdap) 02/08/2031, 11/29/2008, 12/17/1999, Additional history exists PNEUMOCOCCAL VACCINE FOR HIG H RISK PATIENTS (#1) 11/13/2060 Care Teams Men'S And Boys' Clothing Salesperson Relationship Specialty Start Date End Date Stephenie Chao MD PCP - General Internal Medicine 07/29/22
--- OUTSIDE RECORDS SUMMARY | 2024-12-27 13:23 | XMS_ITS | Encounter Summary ---
Author Organization [facility] Address [address] [place] [address] Care Team Providers Care Adult Care Manager Name Role Phone Consuelo Dudley MD Primary Care Provider Unavailab [facility], Pcp Primary Care Provider Consuelo Boothe MD Primary Care Provider Unavailab [facility], Pcp Primary Care Provider Reyna Sullivan MD Primary Care Provider Unava Rio Niño MD Primary Care Provider Unava Ramo Browne MD Primary Care Provider [phone] Stephenie Chao MD Primary Care Provider Un available Reason for Visit * Reason Onset Date Comments other 06/18/2012 Encounter Details Date Type Department Care Team Description 06/18/2012 Telephone Ophthalmology-[address] [address] Brandon Mendoza, JAY other Social History Tobacco Use Types Packs/Day Years Used Date Smoking Tobacco: Never Comments:mom smokes outside Alcohol Use Standard Drinks/Week Comments Not Asked 0 (1 standard drink = 0.6 oz pur e alcohol) Sex Assigned at Date Recorded Not on file documented as of this encounter Miscellaneous Notes * Telephone Encounter - Shabana Ibarra M.A. - 06/18/2012 11:09 AM EDT Glasses prescription given to the patient's mother * Telephone Encounter - Valery Dudley - 06/18/2012 10:36 AM EDT Patient is asking to have a copy of her eyeglass prescription , she has lost the original. Her mother is here with another daughter and would like you to give the script to her mother is possible. documented in this encounter Plan of Treatment Not on file documented as of this encounter Visit Diagnoses Not on filedocumented in this encounter Care Teams Adult Care Manager Relationship Specialty Start Date End Date Consuelo Dudley MD PCP - General Pediatrics 10/02/11 03/30/15 [facility] Pcp PCP - General Internal Medicine 03/31/15 04/14/15 Consuelo Dudley MD PCP - General Pediatrics 04/15/15 04/21/16 [facility], Pcp PCP - General Internal Medicine 04/22/16 08/28/16 Reyna Lennon MD PCP - General Internal Medicine 08/29/16 06/08/17 Rio Hawkins MD PCP - General Internal Medicine 06/09/17 05/18/18 Ramo Sun MD PCP - General Internal Medicine 05/19/18 07/28/22 Stephenie Chao MD PCP - General Internal Medicine 07/29/22 documented as of this encounter
--- OUTSIDE RECORDS SUMMARY | 2024-12-27 13:23 | XMS_ITS | Encounter Summary ---
Author Organization [facility] Address [address] [place] [address] Care Team Providers Care Staking Engineer Name Role Phone Stephenie Chao MD Primary Care Provider Un available Encounter Details Date Type Department Care Team Description 11/27/2022 [facility] [address] [place] [id number] Md Joana Social History Tobacco Use Types Packs/Day Years Used Date Smoking Tobacco: Never Smokeless Tobacco: Never Comments:mom smokes outside Alcohol Use Standard Drinks/Week Comments No 0 (1 standard drink = 0.6 oz pur e alcohol) Sex Assigned at Date Recorded Not on file COVID-19 Exposure Response Date Recorded In the last 10 days, have yo u been in contact with someone who was confirmed or suspected to have Coronavirus/COVID-19? No / Unsure 11/28/2022 12:53 PM EDT documented as of this encounter Plan of Treatment Not on file documented as of this encounter Visit Diagnoses Not on filedocumented in this encounter Care Teams Staking Engineer Relationship Specialty Start Date End Date Stephenie Chao MD PCP - General Internal Medicine 07/29/22 documented as of this encounter
--- OUTSIDE RECORDS SUMMARY | 2024-12-27 13:23 | XMS_ITS | Encounter Summary ---
Author Organization [facility] Address [address] [place] [address] Care Team Providers Care Air Crew Officer Name Role Phone Stephenie Chao MD Primary Care Provider Un available Encounter Details Date Type Department Care Team Description 01/02/2023 Pt. Referral Request [address] [address] Md Joana Social History Tobacco Use Types [...] on filedocumented in this encounter Care Teams Air Crew Officer Relationship Specialty Start Date End Date Stephenie Chao MD PCP - General Internal Medicine 07/29/22 documented as of this encounter
--- OUTSIDE RECORDS SUMMARY | 2024-12-27 13:23 | XMS_ITS | Encounter Summary ---
Author Organization [facility] Address [address] [place] [address] Care Team Providers Care Real Estate Management Specialist Name Role Phone Consuelo Dudley MD Primary Care Provider Unavailab [facility], Pcp Primary Care Provider UnavailReyna Miller MD Primary Care Provider Unava ilable Rio Hawkins MD Primary Care Provider Unava ilable Ramo Sun MD Primary Care Provider Stephenie Chao MD Primary Care Provider Un available Encounter Details Date Type Department Care Team Description 07/25/2015 Transfer Records Medical Records [address] [place] [id number] Social History Tobacco Use Types Packs/Day Years [...] on filedocumented in this encounter Care Teams Real Estate Management Specialist Relationship Specialty Start Date End Date Consuelo Dudley MD PCP - General Pediatrics 04/15/15 04/21/16 [facility], Pcp PCP - General Internal Medicine 04/22/16 08/28/16 Reyna Lennon MD PCP - General Internal Medicine 08/29/16 06/08/17 Rio Hawkins MD PCP - General Internal Medicine 06/09/17 05/18/18 Ramo Sun MD PCP - General Internal Medicine 05/19/18 07/28/22 Stephenie Chao MD PCP - General Internal Medicine 07/29/22 documented as of this encounter
[2024-12-27 13:35] LABS: Hematocrit 47.0 % (37.0-47.0); Hemoglobin 14.8 g/dl (12.0-16.0); Imm Gran Abs Auto 0.13 X10*3/uL (0.00-0.03); Imm Gran Pct Auto 0.9 % (0.0-0.4); Lymphocytes Absolute Auto 3.7 X10*3/uL (1.2-4.9); Mean Corpuscular HGB Conc 31.5 g/dl (31.0-35.0); Mean Corpuscular Hemoglobin 27.7 pg (27.0-33.0); Mean Corpuscular Volume 87.9 fL (80.0-98.0); NRBC Abs Auto 0.000 X10*3/uL (0.0-0.012); NRBC Pct Auto 0.0 /100WBC (0.0-0.2); Platelet Count 295 X10*3/uL (160-400); Red Blood Count 5.35 X10*6/uL (4.20-5.50); White Blood Count 13.8 X10*3/uL (4.8-10.8)
[2024-12-27 13:46] LABS: Hemoglobin A1C 119.4346 umol/L
[2024-12-27 14:05] LABS: Alanine Aminotransferase 27 U/L (0-31); Albumin Level 4.3 g/dL (3.5-5.0); Alkaline Phosphatase 65 U/L (39-117); Anion Gap 7 (12-20); Aspartate Amino Transferase 28 U/L (5-31); Blood Urea Nitrogen 11 mg/dL (9-16); Calcium 9.1 mg/dL (8.4-10.2); Carbon Dioxide 27 mmol/L (22-29); Chloride 109 mmol/L (96-108); Cholesterol 146 mg/dL (<200); Estimated Glomerular Filt Rate > 60; HDL Cholesterol 31 mg/dL (>40); Potassium 3.6 mmol/L (3.3-5.1); Sodium 139 mmol/L (135-145); Total Protein 7.7 g/dL (6.5-8.0); Triglycerides 129 mg/dL (<150)
[2024-12-27 15:13] LABS: CT PCR Urine NOT DETECTED (Not Detect.); NG PCR Urine NOT DETECTED (Not Detect.)
[2024-12-28 06:02] LABS: Syphilis Screen Reactive (Nonreactive)
[2024-12-28 06:30] LABS: HIV Num 1 0.13 S/CO (0.00-0.99)
[2024-12-31 10:15] LABS: T.Pallidum Particle Agg Test Reactive (Nonreactive)
== END 2024-12-27 10:52 | disposition home or self-care (01) ==
LOC: HO.10HDL 10:51
PROVIDERS: Visit Provider Physician Assistant
DX: Z00.00 Encounter for general adult medical examination without abnormal findings (principal); E55.9 Vitamin D deficiency, unspecified; J03.90 Acute tonsillitis, unspecified; Z97.5 Presence of (intrauterine) contraceptive device; R06.83 Snoring; R13.10 Dysphagia, unspecified; E66.812 Obesity, class 2; Z68.29 Body mass index [BMI] 29.0-29.9, adult; Z11.3 Encounter for screening for infections with a predominantly sexual mode of transmission
CPT/HCPCS: 36415; 80048; 80061; 80076; 82306; 83036; 84443; 85025; 86592; 86780; 87389; 87491; 87591; 99385

== ENCOUNTER 2025-01-17 09:37 | Outpatient (AMB) | payer OTHER, SELFPAY ==
--- OUTSIDE RECORDS SUMMARY | 2025-01-17 11:14 | XMS_ITS | Clinical Summary ---
Author Organization [email or web address] [facility] ity Address [address] [place] [address] Care Team Providers Care Operations Scheduler Name Role Phone Stephenie Chao MD Primary Care Provider [phone] Surgical History Surgery Date Site/Laterality Comments OTHER [...] normal first ; COMMENT: Requested records for [facility] on 03/05/13 [place] low risk, fetus female. Normal anatomy with [facility] . Rec to follow up for [...] ( season) 2024 Influenza Vaccine (#1) 2024 , 12/16/2012, 03/26/2007 RSV Immunization Adult Patients (1 [...] age to complete this topic Care Teams Operations Scheduler Relationship Specialty Start Date End Date Stephenie Chao MD PCP - General 07/29/22
--- NOTE | 2025-01-17 12:11 | A.OFFVIS_ITS ---
VS Expanded 01/17/25 12:20 Height 5 ft 4 in Weight 232 lb 2 oz BMI 39.8 Body Fat % 43.5 Body Fat Mass 101 Fat Free Mass 131.2 Visceral Fat Rating 10 Body Water % 40.6 Body Water Mass 94.2 Intake Visit Reasons: TV DECKHAND SWL/MWL BMI 39.2 Allergies No Known Allergies Allergy (Verified 01/17/25 12:13) Medication List - Last Reconciled 01/17/25 by Abdon Rivas MD cholecalciferol (vitamin D3) 1,250 mcg PO QWEEK etonogestrel (Nexplanon) subdermal fluticasone propionate 50 mcg/actuation (Flonase Allergy Relief) 2 sprays intranasal DAILY HPI HPI TV DECKHAND SWL/MWL BMI 39.2: Details: Start time: 12.04pm, End time: 12.49pm ?I spent 40 minutes speaking with the patient on the phone plus an additional 5 minutes reviewing and updating records for a total of 45 minutes HPI Comments Details: Previous weight loss efforts: Herbalife, Phentermine (dry mouth) Wakes up: 5.30am, Sleeps: 11pm Breakfast: 7am (Bagel) Lunch: 11am (ham & cheese sandwich, pizza) Dinner: 8pm (rice, chicken) Snacks: 9am (chips), occ at 3pm (chips) Exercise: none Beverages: Coffee: none, Tea: none, Soda: Coke regular or diet, Juice: none, ETOH: 1/wk (1/2 wine bottle) PFS Medical History (Updated 01/17/25 @ 12:38 by Abdon Rivas MD) BMI 39.0-39.9,adult Snoring Tonsillitis Seasonal allergies Hx of syphilis Gestational diabetes Obesity Surgical History No pertinent past surgical history Family History Sister Lymphoma Father Liver cancer FH: prostate cancer Stroke Diabetes Maternal Grandmother Breast cancer, Onset Age: 65 Paternal Grandmother Breast cancer, Onset Age: 65 Social History (Updated 01/11/25 @ 13:27 by Irlanda Ramachandran CMA) Housing: House Alcohol intake: current Alcohol intake frequency: holidays/special occasions only Patient Tobacco Use Status: Never used Tobacco e-Cigarette/Vaping Use: Currently Using service: No Current occupational status: employed Current occupation: [employer] Telehealth Telehealth Telehealth Platform: Telephone Location of provider rendering services: practice address Location of patient: address on file Patient Identification confirmed using: Name, : Yes Telehealth method: voice only Patient verbally consented to treatment: Yes Patient verbally consented to billing insurance company: Yes Patient informed of any privacy concerns related to visit: Yes Minutes spent on Phone/Video with Pt.: 45 Assessment & Plan Assessment & Plan (1) Obesity: Code(s): E66.9 - Obesity, unspecified Category: Medical Qualifiers: Obesity type: due to excess calories Obesity classification: adult class 2 (BMI 35 - 39.9) Serious obesity comorbidity presence: without serious comorbidity Body mass index: BMI 39.0-39.9 Qualified Code(s): E66.812 - Obesity, class 2; E66.09 - Other obesity due to excess calories; Z68.39 - Body mass index [BMI] 39.0-39.9, adult Plan: 1.? Plan for lap sleeve gastrectomy. If diaphragmatic or ventral hernias are present at time of surgery, these will be repaired laparoscopically as well. I emphasized the importance of close follow-up, adherence to instructions and good communication. The surgery does not replace the need to change your lifestlyle which is the cause of the obesity problem. The surgery provides the motivation to try again to change your lifestyle, it reduces the appetite and make the transition to a better lifestyle easier and doubles the amount of weight you would lose compared to doing the lifestyle change without the surgery. You will need to be on a liquid diet with protein shakes for 2 weeks before surgery to maximize weight loss and boost your nutritional status to recover better from surgery and also for the first two weeks after surgery to let the stomach heal before we introduce other foods. After the first 2 weeks we will introduce protein bars and soft foods like scrambled eggs, cottage cheese and yogurt and after the 6th week will introduce meat, fish and cooked vegetables in small amounts. Over time you should be able to eat everything in small amounts. Side effects like nausea, vomiting, heartburn or abdominal pain are not common in the practice unless you are not following in the practice. This operation requires lifetime commitment to following in our practice and communication with me. You will much less weight and experience side effects if you don?t communicate or not following in the practice. Complications are rare and in our practice is about 1/10 of the national average. However, you can develop bleeding that may require transfusion (hasn?t happened for year in the practice), you may from complications (we did not have any deaths in the practice) and infections. Infections are usually a result of breakdown in communication or not understanding or following directions correctly. They are difficult to treat, they can happen during the first 6 weeks, they may require to be in the hospital for weeks or even months, not being able to eat by mouth and you may have drains and surgeries to try and correct the issue. Other risks and complications include possible conversion to an open procedure, leaks, small bowel obstruction, blood clots, cardiac, or pulmonary complications, as oysterman complications such as ulcers, insufficient weight loss and vitamin deficiencies. 2. Nutritional counseling. Start with one CELEBRATE REBUILD protein (buy online with the link I gave you) shake (ONE scoop in 8oz low fat unsweetened almond milk each) at 6am-8am, 1 protein bar (CELEBRATE protein bars, buy at [facility], buy online with the link I gave you) ) at 9am-11am, another CELEBRATE REBUILD protein shake (ONE scoop in 8oz low fat unsweetened almond milk each) at 12pm-2pm, another Celebrate protein bar at 3pm-5pm, dinner at 6pm (10 forks of protein and 10 forks of salad/vegetables) AND another Celebrate protein bar after dinner at 8pm-10pm. So you do 2 protein shakes, 3 protein bars and one meal per day. Meal to include lean meat (beef, fish, pork, turkey, chicken), or luxembourgish yogurt, or egg whites, or beans with a salad with olive oil and fruits (berries, pears, apples, kiwi). Avoid salt, breads, potatoes, rice, pasta, desserts. 3. Each shake would be drunk slowly, like coffee in a period of 2 hours. 4. Cut each bar in 4 pieces and eat each piece in 30min ?to make each bar last 2 hours. 5. I emphasized the importance of measuring accurately the food portion and measure it when serving the food in plate 6. The meal portions include 8 full-size forks of meat and 8 full-size forks of salad. You always eat the meat portion but you can replace up to 4 forks for salad/vegetables with rice, potatoes or pasta, or a fruit ?if you like. The less you do it the better weight loss will be. 7. One full-size fork is what it can be scooped on the fork without falling aside and not what can be bit with the fork. Use regular forks like those you find in a typical restaurant. 8.? Please buy the body composition scale we discussed and send me weight measurements as soon as possible and then once a week. Always include your diet and exercise plan. 10. The best choice would be to purchase a stationary bike at home that can track calories. If you get one, please start stationary bike at a resistance level of 4.0 Increase level by 1.0 every 3 min to a max level of 10.0. Stay at this level for 3 min and then return to level 4.0 and repeat same steps until 300 calories are burned. Goal is to burn 2000 calories per week on exercise 11.?It is important of avoiding and for at least 18 months postoperatively and has been discussed at the infosession. 12. Goal is to lose at least 1.5-2lbs per week 13. Goal to lose 10% of your weight before surgery, which is about 22lbs. Ultimate weight goal: 210lbs before surgery 14. Please follow the diet plan exactly without any change. If you don't like something about the plan or you feel hungry you need to communicate with me so I can help you revise the plan. You should not change the plan yourself 15. To be scheduled for EGD to assess the stomach's anatomy. The possibility of biopsies was discussed. Patient needs to avoid use of NSAIDs and aspirin for 1 week prior to EGD. You must be on liquids only the day before your endoscopy. Risks of perforation and bleeding was discussed with the patient. This will be an outpatient procedure with IV sedation. Orders: Orders Lipid Panel Today E66.9 - Obesity, unspecified, Z68.39 - Body mass index [BMI] 39.0-39.9, adult Comprehensive Met. Panel Today E66.9 - Obesity, unspecified, Z68.39 - Body mass index [BMI] 39.0-39.9, adult Vitamin B12 and Folate Today E66.9 - Obesity, unspecified, Z68.39 - Body mass index [BMI] 39.0-39.9, adult Vitamin B1 Today E66.9 - Obesity, unspecified, Z68.39 - Body mass index [BMI] 39.0-39.9, adult Vitamin D 25-OH Total Today E66.9 - Obesity, unspecified, Z68.39 - Body mass index [BMI] 39.0-39.9, adult XR chest 2V Today E66.9 - Obesity, unspecified, Z68.39 - Body mass index [BMI] 39.0-39.9, adult ECG 12 lead EKG Today E66.9 - Obesity, unspecified, Z68.39 - Body mass index [BMI] 39.0-39.9, adult Insulin Today E66.9 - Obesity, unspecified, Z68.39 - Body mass index [BMI] 39.0-39.9, adult Hemoglobin A1c Today E66.9 - Obesity, unspecified, Z68.39 - Body mass index [BMI] 39.0-39.9, adult H Pylori Breath Test Today E66.9 - Obesity, unspecified, Z68.39 - Body mass index [BMI] 39.0-39.9, adult Complete Blood Count Auto Diff Today E66.9 - Obesity, unspecified, Z68.39 - Body mass index [BMI] 39.0-39.9, adult IRON PROFILE Today E66.9 - Obesity, unspecified, Z68.39 - Body mass index [BMI] 39.0-39.9, adult Zinc Today E66.9 - Obesity, unspecified, Z68.39 - Body mass index [BMI] 39.0- 39.9, adult C Reactive Protein Today E66.9 - Obesity, unspecified, Z68.39 - Body mass index [BMI] 39.0-39.9, adult Vitamin A Today E66.9 - Obesity, unspecified, Z68.39 - Body mass index [BMI] 39.0-39.9, adult TSH reflex Free T4 Today E66.9 - Obesity, unspecified, Z68.39 - Body mass index [BMI] 39.0-39.9, adult Ferritin Today E66.9 - Obesity, unspecified, Z68.39 - Body mass index [BMI] 39.0-39.9, adult US abdomen comp w elastography Today E66.9 - Obesity, unspecified, Z68.39 - Body mass index [BMI] 39.0-39.9, adult FL upper GI w air Today E66.9 - Obesity, unspecified, Z68.39 - Body mass index [BMI] 39.0-39.9, adult Referrals Behavioral Health Referral E66.9 - Obesity, unspecified, Z68.39 - Body mass index [BMI] 39.0-39.9, adult Nutrition/Dietitian Referral E66.9 - Obesity, unspecified, Z68.39 - Body mass index [BMI] 39.0-39.9, adult
[2025-01-17 12:20] VITALS: BMI 39.8
== END 2025-01-17 12:50 | disposition home or self-care (01) ==
LOC: HO.HBS 09:37
PROVIDERS: PCP Physician Assistant; Visit Provider Surgery
DX: E66.812 Obesity, class 2 (principal); E66.09 Other obesity due to excess calories; Z68.39 Body mass index [BMI] 39.0-39.9, adult
CPT/HCPCS: 99204

== ENCOUNTER 2025-01-24 09:25 | Outpatient (REF) | payer OTHER, SELFPAY ==
--- NOTE | ~2025-01-24 | US_ITS ---
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 COMPARISON: None available. TECHNIQUE: Linear transducer grayscale and color Doppler examination with attention to the region of the thyroid. FINDINGS: SIZE: Measurements of the thyroid lobes and nodules are given in sagittal, anteroposterior and transverse dimensions respectively. Right Thyroid Lobe: 6.3 x 1.9 x 2.4 cm, volume 15.0 mL. Parenchyma: The gland echotexture is normal. Thyroid vascularity is normal. Left Thyroid Lobe: 5.6 x 1.8 x 2.3 cm, volume 12.3 mL. Parenchyma: The gland echotexture is normal. Thyroid vascularity is normal. Isthmus: 0.5 cm in maximum AP dimension. Estimated total number of nodules greater than or equal to 1 cm: 1. Compensator nodules are described as follows: 1. Location: Mid to lower pole, right lobe. Size: 1.5 x 1.3 x 1.2 cm, volume 1.1 mL. Nodule characteristics: Composition: Solid (2). Echogenicity: Undetermined (1) Shape: Taller than wide (3). Margins: Smooth (0). Echogenic Foci: None (0). ACR TI-RADS total points: 6 ACR TI-RADS category: 4 2. Location: Isthmus. Size: 0.4 x 0.4 x 0.5 cm, volume 0.04 mL. Nodule characteristics: Composition: Spongiform (0). Echogenicity: Shape: Margins: Echogenic Foci: ACR TI-RADS total points: 0 ACR TI-RADS category: 0 NODES: No lymphadenopathy is seen in the tissue surrounding the thyroid gland. US/US thyroid IMPRESSION: ACR BI-RADS Category 4, right lobe nodule. ACR TI-RADS RECOMMENDATION REFERENCE: Ultrasound-guided fine-needle aspiration, followup ultrasound, no further follow up. * TR1 (0 point) and TR2 (2 points): No FNA or follow up. * TR3 (3 points): FNA if more than or equal to 2.5 cm in maximum dimension, followup ultrasound in 1, 3 and 5 years if 1.5 to 2.4 cm in maximum dimension. * TR4 (4-6 points): FNA if more than or equal to 1.5 cm in maximum dimension, followup ultrasound in 1, 2, 3 and 5 years if 1 to 1.4 cm in maximum dimension. * TR5 (more than or equal to 7 points): FNA if more than or equal to 1 cm in maximum dimension, followup ultrasound every year for 5 years if 0.5 to 0.9 cm in maximum dimension. * TR3, TR4 or TR5 nodules that are below the size threshold for followup receive no follow up. Electronically signed by: Christiano Khan MD 01/24/2025 10:46 AM NED [facility]
--- OUTSIDE RECORDS SUMMARY | 2025-01-24 11:09 | XMS_ITS | Clinical Summary ---
Author Organization [facility] ity Address [address] [place] [address] Care Team Providers Care Furnace Installer Helper Name Role Phone Stephenie Chao MD Primary Care Provider [phone] Surgical History Surgery Date Site/Laterality Comments OTHER [...] normal first ; COMMENT: Requested records for [facility] on 03/05/13 [place] low risk, fetus female. Normal anatomy with [facility] . Rec to follow up for [...] age to complete this topic Care Teams Furnace Installer Helper Relationship Specialty Start Date End Date Stephenie Chao MD PCP - General 07/29/22
== END 2025-01-24 09:26 | disposition home or self-care (01) ==
LOC: HO.US 09:25
PROVIDERS: PCP Physician Assistant; Visit Provider Physician Assistant
DX: E04.1 Nontoxic single thyroid nodule (principal)
CPT/HCPCS: 76536

== ENCOUNTER → 2025-01-24 09:28 | Outpatient (BNV) | payer OTHER, SELFPAY | PROVIDERS: PCP Physician Assistant; Visit Provider Radiology Diagnostic Radiology | DX: E04.1 Nontoxic single thyroid nodule (principal) | CPT/HCPCS: 76536 ==

== ENCOUNTER 2025-02-08 10:02 | Outpatient (REF) | payer OTHER, SELFPAY ==
--- NOTE | ~2025-02-08 | XR_ITS ---
EXAMINATION: XR CHEST CLINICAL INFORMATION: E66.9 - Obesity, unspecified COMPARISON: December 20, 2021 TECHNIQUE: PA and lateral views. FINDINGS: No hyperinflation. No consolidation, pleural effusion or pneumothorax. Cardiomediastinal silhouette size is normal. Osseous structures are intact. Mild S-shaped curvature of the thoracolumbar spine. Patient's large body habitus/obesity. XR/XR chest 2V IMPRESSION: No acute airspace disease. Electronically signed by: Christiano Khan MD 02/08/2025 11:01 AM NED [facility]
--- NOTE | 2025-02-08 10:13 | ECG_ITS ---
Test Reason : e66.01 Blood Pressure : */* mmHG Vent. Rate : 72 BPM Atrial Rate : 72 BPM P-R Int : 130 ms QRS Dur : 78 ms QT Int : 374 ms P-R-T Axes : 19 32 22 degrees QTcB Int : 409 ms Normal sinus rhythm Normal ECG When compared with ECG of 20-Dec-2021 16:56, No significant change was found Referred By: Abdon Rivas Electronically Signed By: Raymundo Gonzalez
[2025-02-08 10:22] LABS: MANUAL DIFF FLAG NO
[2025-02-08 11:11] LABS: Hematocrit 44.8 % (37.0-47.0); Hemoglobin 14.7 g/dl (12.0-16.0); Imm Gran Abs Auto 0.08 X10*3/uL (0.00-0.03); Imm Gran Pct Auto 0.8 % (0.0-0.4); Lymphocytes Absolute Auto 2.9 X10*3/uL (1.2-4.9); Mean Corpuscular HGB Conc 32.8 g/dl (31.0-35.0); Mean Corpuscular Hemoglobin 28.7 pg (27.0-33.0); Mean Corpuscular Volume 87.3 fL (80.0-98.0); NRBC Abs Auto 0.000 X10*3/uL (0.0-0.012); NRBC Pct Auto 0.0 /100WBC (0.0-0.2); Platelet Count 254 X10*3/uL (160-400); Red Blood Count 5.13 X10*6/uL (4.20-5.50); White Blood Count 10.2 X10*3/uL (4.8-10.8)
[2025-02-08 11:55] LABS: Alanine Aminotransferase 21 U/L (0-31); Albumin Level 4.3 g/dL (3.5-5.0); Alkaline Phosphatase 59 U/L (39-117); Anion Gap 11 (12-20); Aspartate Amino Transferase 24 U/L (5-31); Blood Urea Nitrogen 12 mg/dL (9-16); Calcium 9.6 mg/dL (8.4-10.2); Carbon Dioxide 22 mmol/L (22-29); Chloride 109 mmol/L (96-108); Cholesterol 117 mg/dL (<200); Estimated Glomerular Filt Rate > 60; HDL Cholesterol 29 mg/dL (>40); Iron 53 mcg/dL (30-160); Percent Iron Saturation 22 % (15-50); Potassium 3.9 mmol/L (3.3-5.1); Sodium 138 mmol/L (135-145); Total Iron Binding Capacity 242 mcg/dL (228-428); Total Protein 7.4 g/dL (6.5-8.0); Triglycerides 69 mg/dL (<150); Unsaturated Iron Binding 189 ug/dL
[2025-02-08 12:01] LABS: Ferritin 123 ng/mL (10-122)
--- OUTSIDE RECORDS SUMMARY | 2025-02-08 12:21 | XMS_ITS | Clinical Summary ---
Author Organization [employer] [facility] ity Address [address] [place] [address] Care Team Providers Care Chief Relay Tester Name Role Phone Stephenie Chao MD Primary Care Provider [phone] Surgical History Surgery Date Site/Laterality Comments OTHER [...] normal first ; COMMENT: Requested records for [facility] on 03/05/13 [place] low risk, fetus female. Normal anatomy with [facility] . Rec to follow up for growth [...] on file Sexual Orientation Not on file Last Filed Vital Signs [...] age to complete this topic Care Teams Chief Relay Tester Relationship Specialty Start Date End Date Stephenie Chao MD PCP - General 07/29/22
[2025-02-08 12:23] LABS: Folate 9.3 ng/mL (> or = 4.0); Vitamin B12 352 pg/mL (200-900)
== END 2025-02-08 10:03 | disposition home or self-care (01) ==
LOC: HO.XRAY 10:02
PROVIDERS: PCP Physician Assistant; Visit Provider Surgery
DX: E66.9 Obesity, unspecified (principal); Z68.39 Body mass index [BMI] 39.0-39.9, adult
CPT/HCPCS: 36415; 71046; 80053; 80061; 82306; 82607; 82728; 82746; 83036; 83525; 83540; 84425; 84443; 84590; 84630; 85025; 86140; 93005

== ENCOUNTER → 2025-02-08 10:13 | Outpatient (BNV) | payer OTHER, SELFPAY | PROVIDERS: PCP Physician Assistant; Visit Provider Internal Medicine Cardiovascular Disease | DX: E66.01 Morbid (severe) obesity due to excess calories (principal); Z68.39 Body mass index [BMI] 39.0-39.9, adult | CPT/HCPCS: 93010 ==

== ENCOUNTER → 2025-02-08 10:38 | Outpatient (BNV) | payer OTHER, SELFPAY | PROVIDERS: PCP Physician Assistant; Visit Provider Radiology Diagnostic Radiology | DX: E66.9 Obesity, unspecified (principal); Z68.39 Body mass index [BMI] 39.0-39.9, adult | CPT/HCPCS: 71046 ==

== ENCOUNTER 2025-02-09 12:37 | Outpatient (REF) | payer OTHER, SELFPAY ==
--- NOTE | ~2025-02-09 | US_ITS ---
EXAMINATION: Ultrasound-guided thyroid biopsy. CLINICAL INDICATION: Right thyroid nodule midpole. COMPARISON: Ultrasound thyroid 01/24/2025. TECHNIQUE: Following explaining ultrasound-guided right thyroid nodule biopsy procedure, benefits and risk, a written consent was obtained. Patient was placed supine and preliminary ultrasound imaging was performed through the right neck. An optimal site was selected marker placed along the right anterior neck. The entire anterior neck was cleaned and draped in usual sterile manner. The marked site was injected with 1% lidocaine. Under sterile ultrasound a 3 pass right midpole nodule biopsy was performed without immediate bleeding or complications. Patient tolerated procedure extremely well. Simple Band-Aid applied at the puncture site. FINDINGS: There is a solid slightly heterogeneous well-defined mass midpole right lobe measuring 1.4 x 1.4 x 1.6 cm and volume 1.65 mL. A 3 pass fine-needle biopsy/aspiration of the right mid pole nodule was performed. Samples including AFIRMA were sent to lab immediately after the biopsy. US/US biopsy thyroid IMPRESSION: Successful ultrasound-guided right mid pole nodule biopsy performed without immediate complications. Electronically signed by: Sharif Reeves MD 02/10/2025 07:13 AM NED
[2025-02-09] MEDS: Lidocaine HCl 1 % MPF 5 ML VIAL SUBCUT (14:14)
--- OUTSIDE RECORDS SUMMARY | 2025-02-09 16:47 | XMS_ITS | Clinical Summary ---
Author Organization [employer] [facility] ity Address [address] [place] [address] Care Team Providers Care Machine Designer Name Role Phone Stephenie Chao MD Primary Care Provider [phone] Surgical History Surgery Date Site/Laterality Comments OTHER [...] normal first ; COMMENT: Requested records for [facility] on 03/05/13 [place] low risk, fetus female. Normal anatomy with [facility] . Rec to follow up for [...] age to complete this topic Care Teams Machine Designer Relationship Specialty Start Date End Date Stephenie Chao MD PCP - General 07/29/22
== END 2025-02-09 12:38 | disposition home or self-care (01) ==
LOC: HO.US 12:37
PROVIDERS: PCP Physician Assistant; Visit Provider Physician Assistant
DX: E04.1 Nontoxic single thyroid nodule (principal)
CPT/HCPCS: 10005; 88173; J2003

== ENCOUNTER → 2025-02-09 12:40 | Outpatient (BNV) | payer OTHER, SELFPAY | PROVIDERS: PCP Physician Assistant; Visit Provider Radiology Diagnostic Radiology | DX: E04.1 Nontoxic single thyroid nodule (principal) | CPT/HCPCS: 10005 ==